=== PATIENT | male | born 1950 | race Caucasian/White ===

== ENCOUNTER → 2016-11-28 | Outpatient (CLI) | payer OTHER ==
--- NOTE | 2016-11-28 10:48 | DX ---
Right Foot, Two Views Indication: Blood blister for 2 months. Evaluate for foreign body. Technique: AP and lateral views. A marker on the lateral view points to the area of interest. Findings: The normally mineralized bones are anatomically aligned. No radiopaque or radiolucent fo reign body. No subcutaneous gas or dystrophic calcification. 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 No periostitis or bone lesion. Small plantar s pur. Impression: No foreign body or explanation for blood blister.
== END ==
LOC: BMCIMAGING 09:37
PROVIDERS: ATTEND Internal Medicine
DX: M79.671 Pain in right foot (principal); S90.821A Blister (nonthermal), right foot, initial encounter

== ENCOUNTER 2017-07-13 06:05 | Day surgery (SDC) | payer OTHER ==
--- NOTE | 2017-07-07 16:14 | CPEKG ---
Heart Rate: 74 RR Interval: 811 QRSD Interval: 88 QT Interval: 376 QTC Interval: 418 QRS [place]: 21 T Wave [place]: -9 EKG Severity - ABNORMAL ECG - EKG Impression: ATRIAL FIBRILLATION, V-RATE 57-86 Electronically Signed By: Pato Bhat 08-Jul-2017 15:21:47
[~2017-07-13 06:05] MED LIST: ceFAZolin 2 GM/DEXTROSE 100 ML IV ONE
[2017-07-13] MEDS ORDERED: LIDOCAINE 1% 2 ML INJ ID PRN (06:07)
[2017-07-13] MEDS ORDERED: LR 1,000 ML IV ONE (06:07)
[2017-07-13] MEDS ORDERED: LIDOCAINE 1% 300 MG/30 ML SDV ONE (06:23)
[2017-07-13] MEDS ORDERED: BUPIVACAINE 0.5% 30 ML SDV ONE (06:24)
[2017-07-13 06:28] VITALS: PULSE 81
[2017-07-13] MEDS ORDERED: MIDAZOLAM 2 MG/2 ML VIAL IVP ONE (07:22)
--- NOTE | 2017-07-13 07:25 | PDANEPAE ---
ANE Past Medical History - Cardiovascular History Hx Hypertension: Yes Hx Arrhythmias: Yes Hx Chest Pain: No Hx Coronary Artery / Peripheral Vascular Disease: No Hx CHF / Valvular Disease: No Hx Palpitations: No Cardiovascular History Comment: afib- on eliquis and metoprolol. sees Dr. Bellamy at [facility] [place] - Pulmonary History Hx COPD: No Hx Asthma/Reactive Airway Disease: No Hx Recent Upper Respiratory Infection: No Hx Oxygen in Use at Home: No Hx Sleep Apnea: Yes Sleep Apnea Screening Result - Last Documented: Positive Pulmonary History Comment: chandan positive uses cpap- instructed pt to bring dos - Neurologic History Hx Cerebrovascular Accident: No Hx Seizures: No Hx Dementia: No - Endocrine History Hx Diabetes: No - Renal History Hx Renal Disorders: No - Liver History Hx Hepatic Disorders: No - Neurological & Psychiatric Hx Hx Neurological and Psychiatric Disorders: No - Cancer History Hx Cancer: No - Congenital Disorder History Hx Congenital Disorders: No - GI History Hx Gastrointestinal Disorders: Yes Gastrointestinal History Comment: reflux with margaritas only - Other Health History Other Health History: wears glasses - Chronic Pain History Chronic Pain: No - Surgical History Prior Surgeries: hernia repair at 3 days old ANE Review of Systems - Exercise capacity METS (RN): 5 METS ANE Patient History - Allergies Allergies/Adverse Reactions: No Known Allergies Allergy (Verified 06/29/17 16:26) - Home Medications Home Medications: Eliquis 06/29/17 [Last Taken 07/08/17] Lisinopril 06/29/17 [Last Taken 07/12/17] Metoprolol Succinate 06/29/17 [Last Taken 07/12/17] Osteo Bi-Flex Tablet 06/29/17 [Last Taken 06/16/17] - NPO status NPO Since - Liquids (Date): 07/12/17 NPO Since - Liquids (Time): 20:00 NPO Since - Solids (Date): 07/13/17 NPO Since - Solids (Time): 20:00 - Anes Hx Hx Anesthesia Complications (with details): Inguinal hernia at age [age] days. - Smoking Hx Smoking Status: Never smoked - Family Anes Hx Family Hx Anesthesia Complications: none ANE Labs/Vital Signs - Vital Signs Blood Pressure: 122/95 Heart Rate: 81 Respiratory Rate: 81 O2 Sat (%): 95 Height: 177.8 cm Weight: 97.522 kg ANE Physical Exam - Airway Neck exam: FROM Mouth exam: normal dental/mouth exam - Pulmonary Pulmonary: no respiratory distress, no rales or rhonchi, clear to auscultation - Cardiovascular Cardiovascular: no murmur, rub, or gallop, systolic murmur, irregularly irregular - ASA Status ASA Status: III ANE Anesthesia Plan Anesthesia Plan: MAC
--- NOTE | 2017-07-13 07:28 | PDHPUP ---
History & Physical Update H&P update statement: This history and physical update is based on an assessment of the patient which was completed after admission or registration (within 24 hours), but prior to the surgery/procedure. H&P update: H&P reviewed & patient examined, no change in patient's condition since H&P completed
[2017-07-13] MEDS ORDERED: PROPOFOL 200 MG/20 ML VIAL ONE ×2 (07:32→07:57)
[2017-07-13] MEDS ORDERED: fentaNYL 100 MCG/2 ML INJ ONE (07:32)
[2017-07-13] MEDS ORDERED: NALOXONE HCL 0.4 MG/ML INJ IVP PRN (07:41)
[2017-07-13] MEDS ORDERED: HYDROmorphONE/DILAUDID 1 MG/ML SYR IVP PRN (07:47)
[2017-07-13] MEDS ORDERED: DEXAMETHASONE 4 MG/ML VIAL IVP PRN (07:47)
[2017-07-13] MEDS ORDERED: LR 500 ML IV PRN (07:47)
[2017-07-13] MEDS ORDERED: HYDROCODONE/APAP 5/325 TAB PO PRN (07:47)
[2017-07-13] MEDS ORDERED: PROMETHAZINE HCL 25 MG/ML INJ IVP PRN (07:47)
[2017-07-13] MEDS ORDERED: OXYCODONE/APAP 5/325 TAB PO PRN (07:47)
[2017-07-13] MEDS ORDERED: LABETALOL HCL 50 MG/10 ML SYR IVP PRN (07:47)
[2017-07-13] MEDS ORDERED: fentaNYL 100 MCG/2 ML INJ IVP PRN (07:47)
[2017-07-13] MEDS ORDERED: ACETAMINOPHEN 500 MG TAB PO PRN (07:47)
[2017-07-13] MEDS ORDERED: ENALAPRILAT DIHYDRATE 1.25 MG/ML VIAL IVP PRN (07:47)
[2017-07-13] MEDS ORDERED: ONDANSETRON 4 MG/2 ML VIAL IVP PRN (07:47)
--- NOTE | 2017-07-13 08:35 | POSTOPPROG ---
Post Op Note Date of Operation: 07/13/17 Surgeon: Sim Solitario Anesthesiologist: Dr. Jarvis Anesthesia: IV Sedation Pre-op Diagnosis: [facility] Post-op Diagnosis: [facility] Procedure: UHR Inf/Abcess present in the surg proc area at time of surgery?: No EBL: Minimal
--- NOTE | 2017-07-13 08:43 | POSTANESTH ---
Post Anesthetic Evaluation Cardiovascular Status: Similar to Pre-Op Cond (In atrial fibrillation throughout , rate 70-80.) Respiratory Status: Normal, Stable, Similar to Pre-op Cond. Level of Consciousness/Mental Status: Can Participate in Eval, Mildly Sleepy, Arousable Pain Control: Adequate, Prn Tx Ordered Nausea/Vomiting Control: Adequate, Prn Tx Ordered Complications Possibly Related to Anesthesia: None Noted
--- NOTE | 2017-07-13 09:03 | GOP ---
[f rep st] OPERATIVE REPORT DATE OF OPERATION: 07/13/2017 SURGEON: Bret Solitario MD ANESTHESIA: Monitored anesthetic care. ANESTHESIOLOGIST: Sam Jarvis MD PREOPERATIVE DIAGNOSIS: Incarcerated umbilical hernia. POSTOPERATIVE DIAGNOSIS: Incarcerated umbilical hernia. PROCEDURE PERFORMED: Repair of incarcerated umbilical hernia. FINDINGS: The patient had incarcerated preperitoneal fat. The patient had approximately a 2.5 cm d efect. ESTIMATED BLOOD LOSS: 20 cc. INDICATIONS: A 66-year-old male with a history of umbilical bulge. Risks and benefits of the proce dure were discussed with the patient and his family, their questions were answered, they wished to p roceed. DESCRIPTION OF PROCEDURE: The patient was placed in the supine position. After the induction of ad equate IV sedation, the patient was prepped and draped in the standard sterile fashion. Marcaine 0. 5% was injected throughout the periumbilical area for local anesthesia. An infraumbilical incision was made with a #15 blade and carried down to the subcutaneous tissue with cautery and sharp dissect ion. The sac was carefully dissected and reduced. No other defects were identified. A Marlex mesh was trimmed to fit and secured using 0 Ethibond in a mattress fashion. Prior to tying these down, the defect was loosely closed in a similar manner. The area was irrigated and hemostasis achieved w ith cautery. The umbilicus was then tacked down using 3-0 Vicryl interrupted. The subcutaneous tis odilia was approximated using 3-0 Vicryl in a running fashion. Skin was closed with 5-0 Biosyn subcuti cular. The wound was sterilely dressed. The patient was taken to the post-anesthesia care unit in stable condition. COMPLICATIONS: None. DRAINS: None. /[id number]/MODL
[2017-07-13 09:20] VITALS: RESP 16; O2SAT 94
[2017-07-13 09:51] VITALS: BP 119/75
[2017-07-13 09:54] VITALS: TEMP 97.9
== END 2017-07-13 09:57 | disposition home or self-care (01) ==
LOC: FSGY 06:05
PROVIDERS: ATTEND Surgery
PROC: 0WQF0ZZ Repair Abdominal Wall, Open Approach (ICD-10-PCS; principal; 2017-07-13 07:30)
DX: K42.0 Umbilical hernia with obstruction, without gangrene (principal)
CPT/HCPCS: C1781; J0690; J2250; J2704; J3010

== ENCOUNTER → 2018-12-10 | Outpatient (CLI) | payer OTHER, MEDICARE ==
[~2018-12-10] MED LIST changes: +IOPAMIDOL (ISOVUE 370) 100 ML BTL IV ONE; -ceFAZolin 2 GM/DEXTROSE 100 ML IV ONE
== END ==
LOC: FIMAGING 07:44
DX: I77.810 Thoracic aortic ectasia (principal); R91.1 Solitary pulmonary nodule
CPT/HCPCS: 71275; Q9967; 82565-PO